=== PATIENT | male | born 1995 | race Caucasian/White ===

== ENCOUNTER 2017-10-25 19:30 | Emergency (ER) | payer MEDICAID ==
[~2017-10-25] VITALS: Ht 170.2 cm; Wt 60.0 kg
[~2017-10-25 19:30] MED LIST: DIPH-423 PO; PRED20TA PO
[2017-10-25] MEDS ORDERED: dexamethasone 0.5 mg/5ml unit-dose oral solution PO SCH (20:45)
[2017-10-25] MEDS: diphenhydrAMINE 25 MG/10 ML UD oral solution PO ONE (21:05)
[2017-10-25] MEDS: dexamethasone sod phosphate 10mg/ml inj PO ONE (21:05)
[2017-10-25 21:37] LABS: MONOTEST NEGATIVE (Neg)
[2017-10-25] MEDS ORDERED: NAPR-56 PO (21:51)
[2017-10-25 21:58] VITALS: BP 120/87
== END 2017-10-25 21:59 | disposition home or self-care (01) ==
LOC: ER 19:31
DX: J02.8 Acute pharyngitis due to other specified organisms (principal); Z79.899 Other long term (current) drug therapy
CPT/HCPCS: 36415; 86308; 87081; 87880; 99284; J1100; Q0163; J8540

== ENCOUNTER 2022-11-26 08:39 | Emergency (ER) | payer MEDICAID ==
[~2022-11-26] VITALS: Ht 167.6 cm; Wt 58.3 kg
[2022-11-26 11:10] VITALS: BP 114/78
[2022-11-26] MEDS ORDERED: HYDROcodone/acetaminophen 10/325mg tab PO ONE (11:15)
[2022-11-26] MEDS ORDERED: ondansetron 4mg rapidly disintigrating tab PO ONE (11:15)
[2022-11-26] MEDS ORDERED: LIDOcaine 1% W/epiNEPHrine 1:100,000 20ml vial IJ ONE (11:15)
[2022-11-26] MEDS ORDERED: HYDR-3965 PO (12:41)
[2022-11-26] MEDS ORDERED: OXYC-150 PO (12:54)
== END 2022-11-26 12:56 | disposition home or self-care (01) ==
LOC: ER 08:39
DX: S62.396A Other fracture of fifth metacarpal bone, right hand, initial encounter for closed fracture (principal); Z79.899 Other long term (current) drug therapy; W18.39XA Other fall on same level, initial encounter; Y93.89 Activity, other specified; Y92.89 Other specified places as the place of occurrence of the external cause; Y99.8 Other external cause status
CPT/HCPCS: 26605; 73130; 99284

== ENCOUNTER 2024-07-13 11:34 | Emergency (ER) | payer MEDICAID ==
[~2024-07-13] VITALS: Ht 167.6 cm; Wt 56.8 kg
[~2024-07-13 11:34] MED LIST changes: +OXYC-150 PO
[2024-07-13 11:35] VITALS: BP 135/75; PULSE 100; TEMP 97.5; O2SAT 99
[2024-07-13] MEDS ORDERED: METH-798 PO (14:45)
[2024-07-13 15:14] VITALS: RESP 18
== END 2024-07-13 15:14 | disposition home or self-care (01) ==
LOC: ER 11:34
DX: M54.2 Cervicalgia (principal); R25.2 Cramp and spasm; F17.200 Nicotine dependence, unspecified, uncomplicated; Z79.52 Long term (current) use of systemic steroids; Z79.899 Other long term (current) drug therapy; V89.2XXA Person injured in unspecified motor-vehicle accident, traffic, initial encounter; Y93.89 Activity, other specified; Y92.89 Other specified places as the place of occurrence of the external cause; Y99.8 Other external cause status
CPT/HCPCS: 99283